=== PATIENT | female | born 1940 | race Caucasian/White ===

== ENCOUNTER → 2023-10-08 09:14 | Outpatient (REF) | payer OTHER, SELFPAY | LOC: RAD 09:14 | PROVIDERS: ATTENDING PHYSICIAN Nurse Practitioner Family; FAMILY PHYSICIAN Family Medicine | DX: I87.2 Venous insufficiency (chronic) (peripheral) (principal) | CPT/HCPCS: 93970 ==

== ENCOUNTER → 2023-12-16 12:47 | Outpatient (REF) | payer OTHER, SELFPAY | LOC: RAD 12:47 | PROVIDERS: ATTENDING PHYSICIAN Registered Nurse; FAMILY PHYSICIAN Family Medicine | DX: I73.9 Peripheral vascular disease, unspecified (principal) | CPT/HCPCS: 93922 ==

== ENCOUNTER 2024-03-26 12:44 | Emergency (ER) | payer OTHER, SELFPAY ==
[2024-03-26 12:47] VITALS: BP 186/116
[2024-03-26 13:48] VITALS: BP 161/96
--- NOTE | 2024-03-26 13:53 | ED.GENMED ---
History of Present Illness
<Marcelina Islas PA-C - Last Filed: 03/26/24 18:50>
General
Chief Complaint: Blood Pressure Problem
Source: patient
Exam Limitations: none
Time Seen by Provider: 03/26/24 13:38
Nursing documentation reviewed up to this point in time: agreed with
History of Present Illness
History of Present Illness:
Patient is an 83-year-old female with history hypertension, hyperlipidemia, diabetes with history of left nephrectomy presenting to the emergency department with asymptomatic hypertension. Patient reports recent change in blood pressure medication
from losartan to amlodipine last . Over the past few days her blood pressure has been running high at home. This morning patient had a reading of 181/113, contacted her primary care doctor, and was told to come to the emergency department
for evaluation.
Patient denies any associated headache, and neck pain, dizziness/lightheadedness, back pain, visual changes, numbness/tingling of lower extremities, chest pain, or shortness of breath
Patient does have a history of hypertension for many years and was on losartan 25 mg for a few years until recently when it was increased to 50 mg. She then began to experience some atypical muscle cramps in her leg and back and was switched to
amlodipine.
Past History
<Marcelina Islas PA-C - Last Filed: 03/26/24 18:50>
Past History
ED Past Medical History: HTN, Hypercholesterolemia, NIDDM and Other
ED Past Surgical History: Gynecological and Tonsilectomy
Social History
Tobacco: Non-smoker
Alcohol: None
Drug: None
Living: with family
Employment: Retired
Review of Systems
<Marcelina Islas PA-C - Last Filed: 03/26/24 18:50>
Review of Systems
Allergies reviewed?: Yes
All Other Systems: ROS reviewed and negative except as documented in HPI and ROS
Phy Exam
<Marcelina Islas PA-C - Last Filed: 03/26/24 18:50>
Physical Exam
Physical Exam:
Vitals: Hypertensive, otherwise vital signs are stable. Afebrile
General: Patient is well appearing, no acute distress
Skin: Warm and dry, no rashes or lesions
Head: Normocephalic, atraumatic
Eyes: Sclera nonicteric. EOMs intact. Pupils equal round and reactive to light bilaterally. No nystagmus.
Throat: Protecting airway
Neck: Normal ROM, no cervical spine tenderness, no meningismus. No JVD
Cardiac: Regular rate and rhythm, no murmurs.
Pulm: Normal respiratory effort, no wheezes, rales, rhonchi heard on exam.
Abdomen: Abdomen soft. No abdominal tenderness.
Extremities: No evidence of cyanosis or edema. Palpable and equal distal pulses
Neuro: AAOx3. No focal neurologic deficits. Strength out of 5 in upper and lower extremities. Sensation fully intact.
Psychiatric: Normal affect.
Course
<Marcelina Islas PA-C - Last Filed: 03/26/24 18:50>
Orders/Labs/Results
Orders:
Orders
03/26/24 13:50
EKG [Electrocardiogram (*1)] Urgent
Reason for Study: Hypertension, Benign
EKG- Treatment ONCE
03/26/24 13:56
Complete Blood Count/With Diff Urgent
Comprehensive Metabolic Panel Urgent
Abnormal Lab Results
03/26/24
13:56
MCH 31.6 H pg
(27.0-31.0)
Monocytes % 10.0 H %
(1.7-9.3)
Potassium 5.2 H mmol/L
(3.5-5.1)
BUN 18 H mg/dl
(7-17)
Glucose 227 H mg/dl
(70-99)
Alkaline Phosphatase 37 L U/L
(38-126)
03/26/24 13:56
03/26/24 13:56
Vital Signs
Initial and Last Documented VS:
Initial Vital Signs
Temp Pulse Resp BP Pulse Ox
98.1 F 88 18 186/116 100
03/26/24 12:47 03/26/24 12:47 03/26/24 12:47 03/26/24 12:47 03/26/24 12:47
Last Documented Vital Signs
Temp Pulse Resp BP Pulse Ox
98.1 F 81 13 149/79 98
03/26/24 12:47 03/26/24 15:30 03/26/24 15:30 03/26/24 15:00 03/26/24 15:30
<Kailyn Andrade DO - Last Filed: 03/26/24 14:59>
Orders/Labs/Results
Orders:
Orders
03/26/24 13:50
EKG [Electrocardiogram (*1)] Urgent
Reason for Study: Hypertension, Benign
EKG- Treatment ONCE
03/26/24 13:56
Complete Blood Count/With Diff Urgent
Comprehensive Metabolic Panel Urgent
Abnormal Lab Results
03/26/24
13:56
MCH 31.6 H pg
(27.0-31.0)
Monocytes % 10.0 H %
(1.7-9.3)
Potassium 5.2 H mmol/L
(3.5-5.1)
BUN 18 H mg/dl
(7-17)
Glucose 227 H mg/dl
(70-99)
Alkaline Phosphatase 37 L U/L
(38-126)
03/26/24 13:56
03/26/24 13:56
Vital Signs
Initial and Last Documented VS:
Initial Vital Signs
Temp Pulse Resp BP Pulse Ox
98.1 F 88 18 186/116 100
03/26/24 12:47 03/26/24 12:47 03/26/24 12:47 03/26/24 12:47 03/26/24 12:47
Last Documented Vital Signs
Temp Pulse Resp BP Pulse Ox
98.1 F 81 13 149/79 98
03/26/24 12:47 03/26/24 15:30 03/26/24 15:30 03/26/24 15:00 03/26/24 15:30
<Marcelina Islas PA-C - Last Filed: 03/26/24 18:50>
MDM/Problems Addressed
Differential Diagnosis Includes:
Not limited to: Asymptomatic hypertension, hypertensive urgency, hypertensive emergency
MDM/Problems Addressed:
83-year-old female presenting with asymptomatic hypertension at home. Did have recent change in antihypertensive from losartan to amlodipine 1 week ago. Patient denies headache, visual changes, dizziness, back pain, numbness/tingling or weakness
in lower extremities. No chest pain or shortness of breath. Patient was initially hypertensive to 186/116 in triage although decreased to 161/96 by my assessment. Otherwise her vital signs are normal. Physical exam as above. Patient is very
well-appearing, no apparent distress. Cardio/pulmonary assessment unremarkable. No focal neurologic deficits. No indication for emergent decrease in blood pressure at this time. Will check basic labs and EKG and monitor patient in emergency
department.
Chronic conditions affecting care:
Hypertension, hyperlipidemia, diabetes
Acute Exacerbation and/or Progression of Chronic Illness:
Acutely hypertensive, acutely hyperglycemic
<Marcelina Islas PA-C - Last Filed: 03/26/24 18:50>
*Pulse Oximetry
Patient hypoxic: no
*EKG
Interpreted by ED Provider?: Yes
EKG Intrepretation Date: 03/26/24
Interpretation: normal
Comparison EKG: changes noted
Heart Rate: 73
Rate: normal
Rhythm: sinus
[place]: normal axis
Interval: normal QT interval
QRS Pattern: normal QRS
Ischemia: no ischemia
*Cycle Director Interpretation
Rate: normal
Interpretation: normal
Heart Rate: 80
Rhythm: sinus
*Critical Care Note
Total Time (30-74mins, 75-104mins- exclusive of procedures): Not Applicable
<Marcelina Islas PA-C - Last Filed: 03/26/24 18:50>
Update Note
Update Note:
Update: Labs reviewed. No clinically significant abnormalities. She is hyperglycemic. EKG shows normal sinus rhythm without any acute signs of ischemia. No evidence of end-organ damage. Blood pressure how now decreased to 149/79 without any
intervention. Feel patient is stable for discharge with return precautions and primary care follow-up. Advised patient to take current medications as prescribed, follow low-salt diet. Patient will follow-up with primary care later this week for
further evaluation/possible adjustments to antihypertensive regimen. Patient stable for discharge.
ED Attending Note
<Marcelina Islas PA-C - Last Filed: 03/26/24 18:50>
-
Portions of this chart may have been created with voice recognition software.� Occasional wrong word or��sound alike� substitutions may have occurred due to the inherent limitations of voice recognition software.
<Kailyn Andrade DO - Last Filed: 03/26/24 14:59>
ED Attending Note
Patient seen and examined by attending physician: Yes
I performed the substantive portion of visit, reviewed & personally made and approve the management plan that is documented in note by myself or MONIKA.: Yes
I performed a history and physical exam of patient and discussed management with resident, I reviewed resident's note and agree with documented findings and plan of care.: Yes
ED Attending Note:
83-year-old female with history of high blood pressure presenting to the emergency department for concern of elevated blood pressure. Patient reports in the past few days her pressures have been elevated. Does note that she was previously on
losartan, however was having medication reaction, so was switched to amlodipine 3 days ago. She talk to her doctor who advised that she come to the hospital because she was having blood pressure readings greater than 180 systolic. Had some mild
pressure in her forehead, otherwise denies chest pain, difficulty breathing, weakness, numbness or extremities, visual changes. She denies fever or recent illness. She denies additional acute medical complaints.
Vital signs on arrival are significant for high blood pressure, however improved without intervention. Patient well-appearing on exam, unremarkable cardiac, pulmonary, neurologic exam. No focal neurologic deficits. Ultimately suspect asymptomatic
hypertension, likely from recent medication adjustment. Will screen with laboratory analysis and continue to closely monitor.
15:00 - Labs are unremarkable, no endorgan dysfunction. Feel stable for discharge. Advised continuation of amlodipine as prescribed. Also advise close outpatient primary care follow-up for continued management of blood pressure. Return
precautions discussed and patient verbalized understanding
Discharge Plan
Departure
Patient Disposition: Home (Routine Discharge)
Date of Disposition: 03/26/24
Time of Disposition: 15:04
Patient with high blood pressure during this ER visit?: Yes
Covid-19: Not Applicable
Discharge Problem:
Asymptomatic hypertension
Instructions: High Blood Pressure (DC), BLOOD PRESSURE
Prescriptions:
No Action
rosuvastatin 10 MG tablet
10 mg PO HS
bimatoprost [Lumigan] 1 DROP drops
1 drp BOTH EYES HS
Istalol
1 drp BOTH EYES DAILY
metformin 500 MG tablet
500 mg PO DAILY 0RF
sennosides [senna] 1 TABLET tablet
2 tab PO BID 0RF
acetaminophen 325 MG tablet
650 mg PO QID Qty: 0 0RF
magnesium hydroxide 30 ML suspension
30 ml PO DAILYPRN PRN (Reason: constipation) 0RF
aspirin 325 MG tablet,delayed release (DR/EC)
325 mg PO DAILY 0RF
docusate sodium 100 MG capsule
100 mg PO BID 0RF
oxycodone 5 MG tablet
5 mg PO Q4HPRN PRN (Reason: MODERATE-SEVERE PAIN) Qty: 90 0RF
Rx Instructions:
DX TKA
1-2 TABS
ONGOING THERAPY
carvedilol 3.125 MG tablet
3.125 mg PO BID Qty: 0 0RF
Rx Instructions:
TAKE ONCE DAILY--RESUME BID DOSING ON 07/04/17
amlodipine 5 mg Tablet
5 mg PO DAILY
Referrals:
Andrei Molina MD [Family Provider] - Follow up in 5-7 days
Activity Restrictions/Additional Instructions:
RETURN TO THE EMERGENCY DEPARTMENT WITH ANY PERSISTENTLY ELEVATED BLOOD PRESSURE, CHEST PAIN, SHORTNESS OF BREATH, SEVERE HEADACHE, VISUAL CHANGES, DIZZINESS, SEVERE BACK PAIN, OR ANY OTHER CONCERNS
-As discussed�you should continue to take your blood pressure medication as prescribed. Check your blood pressure once daily and returned with any persistent elevations greater than 220/120 or any concerning symptoms.
-You should follow a low-salt diet. Stay well-hydrated.
-You should follow-up with your primary care provider in a few days for further evaluation/management of your high blood pressure.
Monitor your symptoms closely and return to the emergency department with any acute worsening/new symptoms or any other concerns
Interventions
Interventions:
*Risk Screen - Suicide Last Done: 03/26/24 16:15
*General Assessment Last Done: 03/26/24 16:15
*Neglect/Abuse Screening Last Done: 03/26/24 16:15
ED- Fall Risk Assessment Last Done: 03/26/24 13:43
*ED COVID-19 Vaccine History Last Done: 03/26/24 12:47
*Nursing Disposition Last Done: 03/26/24 16:16
ED- Cardiac Assessment Last Done: 03/26/24 13:43
ED- Neurological Assessment Last Done: 03/26/24 13:43
ED- Pulmonary Assessment Last Done: 03/26/24 13:43
Discharge Date and Time
Discharge Date/Time: 03/26/24 16:16
Print Language: BELGIAN
[2024-03-26 13:57] VITALS: BP 170/84
[2024-03-26 14:00] VITALS: BP 157/88
[2024-03-26 14:31] LABS: ALT (SGPT) 23 U/L (0-35); AST (SGOT) 30 U/L (14-36); Albumin 4.8 g/dl (3.5-5.0); Alkaline Phosphatase 37 U/L (38-126); Blood Urea Nitrogen 18 mg/dl (7-17); Calcium 9.8 mg/dl (8.4-10.2); Carbon Dioxide 27 mmol/L (22-30); Chloride 99 mmol/L (98-107); Estimated Creatinine Clearance 70 ml/min; Glucose 227 mg/dl (70-99); Potassium 5.2 mmol/L (3.5-5.1); Sodium 138 mmol/L (135-145); Total Bilirubin 1.1 mg/dl (0.2-1.3); Total Protein 7.4 g/dl (6.3-8.2); eGFR > 60.00
[2024-03-26 14:34] LABS: % Basophils 0.9 % (0-2); % Immature Granulocytes 0.4 % (0-0.5); % Lymphocytes 24.4 % (20.5-51.1); % Neutrophils 62.3 % (42.2-75.2); Absolute Basophils 0.1 10^3/uL (0-0.2); Absolute Eosinophils 0.1 10^3/uL (0-0.7); Absolute Lymphocytes 1.4 10^3/uL (1.2-3.4); Absolute Monocytes 0.6 10^3/uL (0.1-0.6); Absolute Neutrophils 3.5 10^3/uL (1.4-6.5); Hematocrit 44.9 % (37.0-47.0); Hemoglobin 15.5 g/dL (12.0-16.0); Mean Corp Hgb Conc. 34.5 g/dL (33.0-37.0); Mean Corpuscular Hgb 31.6 pg (27.0-31.0); Mean Corpuscular Volume 91.4 fL (81.0-99.0); Mean Platelet Volume 10.4 fL (7.4-10.4); Nucleated Red Blood Cells % 0 %; Platelet Count 149 10^3/uL (130-400); Red Blood Cell Count 4.91 10^6/uL (4.20-5.40); Red Cell Dist. Width 12.2 % (11.5-14.5); White Blood Cell Count 5.6 10^3/uL (4.8-10.8)
[2024-03-26 15:00] VITALS: BP 149/79
== END 2024-03-26 16:16 | disposition home or self-care (01) ==
LOC: EMR 12:44
PROVIDERS: Physician Assistant; EMERGENCY PHYSICIAN Student in an Organized Health Care Education/Training Program; FAMILY PHYSICIAN Internal Medicine Geriatric Medicine
DX: I10 Essential (primary) hypertension (principal); E78.00 Pure hypercholesterolemia, unspecified; E11.65 Type 2 diabetes mellitus with hyperglycemia
CPT/HCPCS: 99284; 80053; 85025; 93005

== ENCOUNTER → 2024-07-13 13:08 | Outpatient (REF) | payer OTHER, SELFPAY | LOC: WDC 13:08 | PROVIDERS: ATTENDING PHYSICIAN Family Medicine | DX: Z12.31 Encounter for screening mammogram for malignant neoplasm of breast (principal) | CPT/HCPCS: 77063; 77067 ==

== ENCOUNTER → 2024-09-19 13:38 | Outpatient (REF) | payer OTHER, SELFPAY | LOC: HWRCS 13:38 | PROVIDERS: ATTENDING PHYSICIAN Family Medicine | DX: I49.9 Cardiac arrhythmia, unspecified (principal); E78.5 Hyperlipidemia, unspecified; I10 Essential (primary) hypertension | CPT/HCPCS: 93306 ==

== ENCOUNTER 2024-09-29 09:07 | Day surgery (SDC) | payer OTHER, SELFPAY | END 2024-09-29 11:15 | disposition home or self-care (01) | LOC: CATH 09:07 | PROVIDERS: ATTENDING PHYSICIAN Internal Medicine; FAMILY PHYSICIAN Family Medicine; OTHER PHYSICIAN Internal Medicine Cardiovascular Disease | DX: I48.91 Unspecified atrial fibrillation (principal); I10 Essential (primary) hypertension; R06.02 Shortness of breath; E78.2 Mixed hyperlipidemia; E11.9 Type 2 diabetes mellitus without complications; R60.0 Localized edema; G47.33 Obstructive sleep apnea (adult) (pediatric); I25.2 Old myocardial infarction; Z79.01 Long term (current) use of anticoagulants | CPT/HCPCS: 92960; 93005 ==

== ENCOUNTER → 2024-12-21 07:41 | Outpatient (REF) | payer OTHER, SELFPAY | LOC: DHVS 07:41 | PROVIDERS: ATTENDING PHYSICIAN Surgery Vascular Surgery; FAMILY PHYSICIAN Family Medicine | DX: I73.9 Peripheral vascular disease, unspecified (principal) | CPT/HCPCS: 93922; 93925 ==